=== PATIENT | male | born 1995 | race Caucasian/White ===

== ENCOUNTER 2018-01-30 18:15 | Emergency (ER) | payer BC ==
[~2018-01-30] VITALS: Ht 185.4 cm; Wt 74.8 kg
[~2018-01-30 18:15] MED LIST: ABILIFY10 MG ORAL; AUGMENTIN 875-1 EAC1 ORAL; BACITRACIN15 GM TOPIC; CIPROFLOXACIN500 M2 ORAL; IBUPROFEN600 MG ORAL; NKM; SERTRALINE HCL100 MG PO; ZOFRAN ODT4 MG ORAL
[2018-01-30] MEDS ORDERED: NKM (18:31)
--- NOTE | 2018-01-30 18:41 | Emergency Room Report ---
History of Present Illness General Chief Complaint: Upper Extremity Injury Source: Patient Present Illness HPI 22-year-old male presents ER with right hand injury x1 day. Patient reports he is right-hand dominant. Reports that he punched a lamp last night while drinking. . Reports bleeding from site of injury. Denies loss of range of motion. Reports pain with extension of finger. Denies fever, chest pain, shortness of breath. denies other acute symptoms. Denies loss sensation in hand. denies history of injury to hand. reports history of smoking marijuana, reports last smoked today prior to arrival at ER. Allergies: Coded Allergies: No Known Allergies (Unverified , 02/04/14) Patient History Past Medical History: see triage record Reviewed Nursing Documentation: PMH: Agreed; PSxH: Agreed Nursing Documentation-PMH Past Medical History: No History, Except For Review of Systems All Other Systems: negative except mentioned in HPI Physical Exam Vital Signs Date Time Temp Pulse Resp B/P (MAP) Pulse Ox O2 Delivery O2 Flow Rate FiO2 01/30/18 18:25 97.9 97 17 119/71 95 Room Air 97.9 Sp02 EP Interpretation: reviewed, normal General Appearance: well appearing, no apparent distress, alert, GCS 15, non- toxic Head: normocephalic, atraumatic Eyes: bilateral eye normal inspection, bilateral eye PERRL ENT: hearing grossly normal, normal pharynx, no angioedema, normal voice, uvula midline, moist mucus membranes Neck: full range of motion Respiratory: lungs clear, normal breath sounds, no rhonchi, no respiratory distress, no accessory muscle use, no wheezing, speaking full sentences Cardiovascular #1: regular rate, rhythm, no edema Cardiovascular #2: 2+ radial (R), 2+ radial (L) Musculoskeletal: back normal, digits/nails normal, gait/station normal, normal range of motion - full flexion and extension of DIP PIP and MCP of the fifth digit of right hand, non-tender Neurologic: alert, oriented x3, responsive, motor strength/tone normal, sensory intact Psychiatric: mood/affect normal Skin: other - open wound on dorsum of right hand proximal to MCP joint: no active bleeding, exposed tendon and underlying tissue, blood present Medical Decision Making PA Attestation Dr. Hanson is my supervising Physician whom patient management has been discussed with. Diagnostic Impression: Primary Impression: Open wound of hand ER Course Pt. presents to the ED c/o open wound on right hand after breaking a lamp yesterday. Ddx considered but are not limited to fracture, sprain, strain, contusion, dislocation. No erythema, no warmth to touch, no fever, nontoxic appearing, low suspicion for septic joint. Vital signs: are WNL, pt. is afebrile Ordered X-ray, TDAP, and pain medication. ER COURSE Provided with pain medication. An X-ray of the right hand ordered, results show no acute fracture, soft tissue swelling and injury noted near the fifth metacarpal, per the preliminary reading. Consult with Dr. Hanson on x-ray, agrees with reading. On physical exam, patient has full range of motion of the MCP PIP and DIP flexion and extension, low suspicion for tendon rupture, sensation is intact to light touch, soft tissue, muscle and tendon exposure noted, wound explored no foreign bodies identified. patient reports worsening of pain with extension. Wound cleaned copious amounts of saline, dressed Xeroform and sterile gauze applied to wound. Due to wound appearance and length of time since injury onset, patient does not require sutures at this time, will allow to heal by secondary intention, will provide antibiotics at discharge to home. Patient instructed to keep wound clean and dry. Followup with primary care provider. Provided contact information for Dr. Vega, hand specialist. Instructed to call and schedule appointment tomorrow. Instructed patient not to drink alcohol while underage. Patient has multiple cuts on neck and other parts of body, states occurred during times of "messing around". Do not believe patient is a danger to himself or others at this time. Instructed patient to followup with PCP and discuss further treatment and referral. Patient seen in ER with dad who seems genuinely concerned about well being of patient. Discuss referral to mental health for further treatment and evaluation. DISCHARGE: -Rx provided for -Rx provided for Bactrim -Rx provided for Keflex At this time pt. is stable for d/c to home. Patient is resting comfortably, in no acute distress, nontoxic appearing, talking without difficulty. Will provide printed patient care instructions, and any necessary prescriptions. Patient instructed to follow with primary care provider in 3 - 5 days and to request further orthopedic follow-up. Care plan and follow up instructions have been discussed with the patient prior to discharge. Take medications as directed. Patient questions asked and answered. Patient reports understanding and agreement to treatment plan. ER precautions given, patient instructed to return to ER immediately for any new or worsening of symptoms. - Please note that this Emergency Department Report was dictated using [employer] drop operator technology software, occasionally this can lead to erroneous entry secondary to interpretation by the dictation equipment. Other X-Ray Diagnostic Results Other X-Ray Diagnostic Results : X-Ray ordered: right hand # of Views/Limited Vs Complete: 3 View Indication: Pain PA Xray: Interpretation reviewed, by supervising MD, and agrees with findings. Interpretation: no dislocation, no soft tissue swelling, no fractures Impression: Other - soft tissue injury JOSIE Scribe Text Thad Jimenez PA-C Last Vital Signs Date Time Temp Pulse Resp B/P (MAP) Pulse Ox O2 Delivery O2 Flow Rate FiO2 01/30/18 18:25 97.9 97 17 119/71 95 Room Air 97.9 Disposition: HOME, SELF-CARE Condition: Stable Scripts Ibuprofen* (MOTRIN*) 600 Mg Tablet 600 MG ORAL Q8H PRN for For Pain, #30 TAB 0 Refills Prov: Toribio Jimenez 01/30/18 Cephalexin* (KEFLEX*) 500 Mg Capsule 500 MG ORAL EVERY 12 HOURS, #14 CAP 0 Refills Prov: Toribio Jimenez 01/30/18 Trimethoprim/Sulfamethoxazole 160/800* (BACTRIM DS TABLET*) 1 Each Tablet 1 TAB ORAL TWICE A DAY, #14 TAB Prov: Toribio Jimenez 01/30/18 Referrals: NOT CHOSEN IPA/MD,REFERRING (PCP) Patient Instructions: Cellulitis, [id number], Laceration Care, Adult, Easy-to -Read Additional Instructions: Patient instructed to follow-up with primary care provider in 1-2 days for wound check. Discuss further treatment and referral. Contact Sarath for hand followup in 1 day. Take medications as directed. Keep wound clean and dry. Patient questions asked and answered. ER precautions given, patient instructed to return to ER immediately for any new or worsening of symptoms. Toribio Jimenez Jan 30, 2018 18:41
[2018-01-30] MEDS ORDERED: Tetanus/Diptheria/Pertussis Vaccine 0.5ml Syr IM ONE (18:45)
[2018-01-30 19:03] VITALS: BP 119/71
[2018-01-30] MEDS ORDERED: Lidocaine 1% MPF 10mg/ml 5ml IM ONE (19:30)
[2018-01-30] MEDS ORDERED: IBUPROFEN600 MG ORAL (19:50)
[2018-01-30] MEDS ORDERED: CEPHALEXIN500 MG ORAL (19:50)
[2018-01-30] MEDS ORDERED: BACTRIM DS TAB1 EAC1 ORAL (19:50)
[2018-01-30 20:06] VITALS: BP 119/71
--- NOTE | 2018-01-31 12:34 | Diagnostic Imaging Report ---
Indication: pain Right hand pain Findings: 3 views of the right hand were obtained. Normal bony mineralization and alignment are demonstrated. No acute fractures, erosions, or periosteal reaction are seen. Soft tissues are unremarkable. Impression: No acute findings.
== END 2018-01-30 20:08 | disposition home or self-care (01) ==
LOC: EMR 18:23
DX: S61.401A Unspecified open wound of right hand, initial encounter (principal); W22.8XXA Striking against or struck by other objects, initial encounter; Y92.89 Other specified places as the place of occurrence of the external cause; Z23 Encounter for immunization
CPT/HCPCS: 90471; 90715; 96372; 99284

== ENCOUNTER 2018-06-07 05:32 | Emergency (ER) | payer BC ==
[~2018-06-07] VITALS: Ht 185.4 cm; Wt 72.6 kg
[~2018-06-07 05:32] MED LIST changes: +BACTRIM DS TAB1 EAC1 ORAL; +CEPHALEXIN500 MG ORAL
[2018-06-07 05:38] VITALS: BP 120/77
[2018-06-07] MEDS ORDERED: Lidocaine 1% MPF 10mg/ml 5ml INJ ONE (05:45)
[2018-06-07] MEDS ORDERED: Cephalexin 500mg cap ORAL ONE (05:45)
--- NOTE | 2018-06-07 05:48 | Emergency Room Report ---
History of Present Illness General Chief Complaint: Laceration Source: Patient Present Illness HPI Patient presents with a laceration of his left hand. He is climbing over fence and punctured the hand in the palm. He feels a slight amount of tingling in the hand but not in the fingers. Is able to move his fingers. Pain rated 9/10 , burning and aching. It's not radiating and worse when he moves his fingers. Last tetanus was a year ago (was actually January here). Patient is right-handed. Broke up with girlfriend earlier. No alcohol tonight. Patient takes Abilify. Seen in January for open wound R hand after punching lamp. The patient had a tendon injury on the right-hand in the past which required repair. He is worried about tendon injury. Allergies: Coded Allergies: No Known Allergies (Unverified , 02/04/14) Patient History Past Medical History: see triage record, psych hx Past Surgical History: appy, other - tendon repair Social History: Reports: smoking, alcohol use, drug use - thc Social History Narrative manager acute Reviewed Nursing Documentation: PMH: Agreed; PSxH: Agreed Nursing Documentation-PMH Past Medical History: No Stated History Review of Systems Constitutional: Denies: fever Musculoskeletal: Reports: see HPI Skin: Reports: see HPI Psychiatric: Reports: see HPI Neurological: Reports: see HPI Hematologic/Lymphatic: Reports: see HPI Physical Exam Vital Signs Date Time Temp Pulse Resp B/P (MAP) Pulse Ox O2 Delivery O2 Flow Rate FiO2 06/07/18 05:33 98.1 80 18 120/77 97 Room Air 98.1 Sp02 EP Interpretation: reviewed, normal General Appearance: well appearing, no apparent distress Head: normocephalic, atraumatic Eyes: bilateral eye normal inspection, bilateral eye PERRL ENT: hearing grossly normal, normal voice Neck: full range of motion, supple Respiratory: no respiratory distress, speaking full sentences Cardiovascular #1: regular rate, rhythm Cardiovascular #2: 2+ radial (L) - cap fill normal Gastrointestinal: scaphoid Musculoskeletal: back normal, gait/station normal, normal range of motion, other - Profundus and superficialis are intact. The patient is able to make a fist with his hand. Neurologic: alert, motor strength/tone normal, sensory intact, normal gait Psychiatric: mood/affect normal Skin: warm/dry, laceration - Palm also 1 cm Procedures Laceration/Wound Repair Laceration/Wound Repair : Consent: Verbal Wound Location: upper extremity - left palm Wound's Depth, Shape: into muscle, irregular, stellate, other - Y shaped with avulsed skin (not present) Wound Length (cm): 1 Wound Explored: clean Irrigated w/ Saline (ccs): 30 Betadine Prep?: Yes Anesthesia: 1% Lidocaine Volume Anesthetic (ccs): 4 Wound Debrided: none Wound Repaired With: sutures Suture Size/Type: 5:0 Patient Tolerated: Well Complications: None Progress Explored wound, unable to see base. No FB seen. Facial sheath lacerated. No tendon lacerations seen. Medical Decision Making Diagnostic Impression: Primary Impression: Hand laceration Qualified Codes: S61.412A - Laceration without foreign body of left hand, initial encounter ER Course Patient presents with puncture wound/laceration to his left hand. There is no evidence of tendon involvement at this time. As is a puncture wound laceration this needs to be cleaned and repaired. In addition antibiotics are indicated. The patient will also be given Motrin. His tetanus is up-to-date. This is nondominant hand. See procedure note. Circle requested and given. Splint applied by tech. Position good and neurovasc normal as checked by me. Also sling applied. Instructions to follow up with hand specialist discussed with patient and family. Patient stable for outpatient observation and treatment. Last Vital Signs Date Time Temp Pulse Resp B/P (MAP) Pulse Ox O2 Delivery O2 Flow Rate FiO2 06/07/18 06:28 98.1 06/07/18 06:20 71 19 124/76 98 Room Air Status: improved Disposition: HOME, SELF-CARE Condition: Improved Scripts Bacitracin (Bacitracin) 28.4 Gm Oint...g. 1 APPLIC TOPIC BID, #20 GM Prov: Jeremy Perry M.D. 06/07/18 Hydrocodone Bit/Acetaminophen 5-325* (NORCO 5-325*) 1 Each Tablet 1 TAB ORAL Q6H PRN for For Pain, #8 TAB 0 Refills Prov: Jeremy Perry M.D. 06/07/18 Ibuprofen* (MOTRIN*) 600 Mg Tablet 600 MG ORAL Q6H PRN for For Pain, #20 TAB Prov: Jeremy Perry M.D. 06/07/18 Cephalexin* (KEFLEX*) 500 Mg Capsule 500 MG ORAL EVERY 6 HOURS, #28 CAP Prov: Jeremy Perry M.D. 06/07/18 Referrals: NOT CHOSEN FANG/,REFERRING (PCP) Jeremy Perry M.D. Jun 07, 2018 05:48
[2018-06-07] MEDS ORDERED: Bacitracin Oint UD TOPIC ONE (06:15)
[2018-06-07 06:20] VITALS: BP 124/76
[2018-06-07] MEDS ORDERED: IBUPROFEN600 MG ORAL (06:25)
[2018-06-07] MEDS ORDERED: CEPHALEXIN500 MG ORAL (06:25)
[2018-06-07] MEDS ORDERED: NORCO 5-325 TA1 EACH ORAL (06:25)
[2018-06-07] MEDS ORDERED: BACITRACIN15 GM TOPIC (06:25)
[2018-06-07] MEDS ORDERED: Norco 5mg/325mg tab ORAL ONE (06:30)
== END 2018-06-07 06:40 | disposition home or self-care (01) ==
LOC: EMR 05:44
DX: S61.421A Laceration with foreign body of right hand, initial encounter (principal); Z72.0 Tobacco use; Y28.8XXA Contact with other sharp object, undetermined intent, initial encounter
CPT/HCPCS: 99283